=== PATIENT | male | born 1965 | race Hispanic/Latino ===

== ENCOUNTER 2025-03-28 13:38 | Emergency (ER) | payer BC ==
[~2025-03-28] VITALS: Ht 170.2 cm; Wt 77.1 kg
[2025-03-28 14:10] LABS: IMMATURE GRANULOCYTE ABSOLUTE 0.03 K/uL (0-1); NUCLEATED RED BLOOD CELLS 0.0 % (0.0-0.19); PLATELET COUNT (AUTO) 200 K/uL (130-400); RED BLOOD CELL COUNT(AUTO) 5.24 MIL/uL (4.50-6.20); RED CELL DISTRIBUTION WIDTH 13.0 % (11.0-15.5); WHITE BLOOD COUNT (AUTO) 8.1 K/uL (4.8-10.8)
[2025-03-28 14:22] LABS: CREATININE 0.7 mg/dL (0.5-1.3); GLOMERULAR FILTR. RATE CALC 106.0 mL/min (>90); GLUCOSE,RANDOM 309.0 mg/dL (70-105); SODIUM SERUM 132.0 mmol/L (136-145); UREA NITROGEN, BLOOD 10.0 mg/dL (7-18)
[2025-03-28 14:27] LABS: ABG BASE EXCESS -4.2 mmol/L (-2.0-3.0); ABG HCO3 18.0 mmol/L (21.0-28.0); ABG PCO2 26 mmHg (35-48); ABG PH 7.454 (7.350-7.450); DEVICE COMMENT LR JULIE; TEMPERATURE, CELSIUS BG 37.0 CELSIUS (35.5-37.0); VENT MODE, BG ROOM AIR (ROOM AIR)
--- NOTE | 2025-03-28 14:46 | ERN ---
ED Note History of Present Illness Stated Complaint: SENT BY CLINIC FOR HI BLOOD GLUCOSE. PT C/O FEVER Chief Complaint: Hyperglycemia Time Seen by MD: 13:54 Time Seen by Midlevel: 13:56 Dictation: 59-year-old male diabetes and CVA brought in via EMS from doctor's office for elevated blood sugar to rule out DKA. Patient states he went to PCP because he was having urinary frequency. Patient also states he has needs to be taking metformin but has not taking months due to its side effects. Allergies: Coded Allergies: No Known Drug Allergies (Unverified Allergy, Unknown, 03/28/25) Past Medical History Past Medical History: Diabetes-Type II, High Cholesterol, Hypertension, Stroke Additional Past Medical Hx: R SIDED WEAKNESS Surgical History: None Review of System Dictation Constitutional: Negative for fever,chills, and weight loss Eyes: Negative for injury, pain,redness, and discharge ENT: Negative for injury,pain or swelling Cardiovascular: Negative for chest pain, palpitations, and edema Respiratory: Negative for shortness of breath, cough, and wheezing, Abdomen/GI: Negative for abdominal pain, nausea, vomiting, diarrhea, and constipation Back: Negative for injury and pain : Cleaning of urinary frequency MS/Extremity: Negative for injury and deformity Skin: Negative for rash, and discoloration Neuro: Negative for headache, weakness, numbness, tingling, and seizure Psych: Negative for suicide ideation, homicidal ideation, and hallucinations Review of Systems: was completed Initial Vital Sign VS Vital Signs Date Time Temp Pulse Resp B/P (MAP) Pulse Ox O2 Delivery O2 Flow Rate FiO2 03/28/25 13:47 98.1 92 17 134/87 98 Room Air 0 03/28/25 14:18 21 Physical Exam Dictation General: awake, alert, NAD Head/Face: Normocephalic, atraumatic Eyes: PERRL, EOMI, vision at baseline ENT: oral cavity clear, TMs clear, no signs of infection Neck: Trachea midline, supple, no nuchal rigidity Cardiovascular: RRR, normal S1/S2, No MRGs, no JVD Respiratory: CTAB, no respiratory distress, No rales or wheezes Abdomen: Soft, non-tender, non-distended, normal bowel sounds, no guarding or rebound. Skin: Warm, dry, normal turgor, no rash MS/Extremity: Pulses equal, no cyanosis, neurovascular intact, FROM Neuro: COAx4, GCS 15, strength 5/5, CN 2-12 intact, normal cerebellar exam, normal gait, Psych: Normal behavior, mood, and affect normal Results (Laboratory/Radiology) Laboratory/Radiology Laboratory Tests Test 03/28/25 14:06 03/28/25 14:25 03/28/25 15:03 03/28/25 17:02 White Blood Count 8.1 K/uL (4.8-10.8) Red Blood Count 5.24 MIL/uL (4.50-6.20) Hemoglobin 16.2 g/dL (14.0-18.0) Hematocrit 45.6 % (42-54) Mean Corpuscular Volume 87.0 fL (79-99) Mean Corpuscular Hemoglobin 30.9 pg (27.0-33.0) Mean Corpuscular Hemoglobin Concent 35.5 g/dL (32.0-36.0) Red Cell Distribution Width 13.0 % (11.0-15.5) Platelet Count 200 K/uL (130-400) Mean Platelet Volume 9.8 fL (7.5-10.5) Immature Granulocyte % (Auto) 0.4 % (0-1) Neutrophils (%) (Auto) 73.4 % (40.0-77.0) Lymphocytes (%) (Auto) 13.0 % (21.0-51.0) L Monocytes (%) (Auto) 10.9 % (3.0-13.0) Eosinophils (%) (Auto) 1.7 % (0.0-8.0) Basophils (%) (Auto) 0.6 % (0.0-5.0) Neutrophils # (Auto) 6.0 K/uL (1.8-7.7) Lymphocytes # (Auto) 1.1 K/uL (1.0-4.8) Monocytes # (Auto) 0.9 K/uL (0.1-1.0) Eosinophils # (Auto) 0.14 K/uL (0.00-0.70) Basophils # (Auto) 0.05 K/uL (0.00-0.20) Absolute Immature Granulocyte (auto 0.03 K/uL (0-1) Nucleated Red Blood Cells 0.0 % (0.0-0.19) Sodium Level 132 mmol/L (136-145) L Potassium Level 3.7 mmol/L (3.5-5.1) Chloride Level 99 mmol/L (101-111) L Carbon Dioxide Level 22 mmol/L (21-32) Blood Urea Nitrogen 10 mg/dL (7-18) Creatinine 0.7 mg/dL (0.5-1.3) Glomerular Filtration Rate Calc 106 mL/min (>90) Random Glucose 309 mg/dL (70-105) H Whole Blood Ketones Quantitative 0.6 mmol/L (0.0-0.6) Total Calcium 8.7 mg/dL (8.5-10.1) Blood Gas Specimen Type Arterial Arterial Blood pH 7.454 (7.350-7.450) Arterial Blood Partial Pressure CO2 26 mmHg (35-48) L Arterial Blood HCO3 18.0 mmol/L (21.0-28.0) L Arterial Blood Base Excess -4.2 mmol/L (-2.0-3.0) L Sodium (Blood Gas) 130 MMOL/L (136-145) L Bedside Potassium (Blood Gas) 3.8 MMOL/L (3.4-4.5) Bedside Chloride (Blood Gas) 100 MMOL/L (98-107) Bedside Glucose (Blood Gas) 292 MG/DL (65-95) H Bedside Ionized Calcium (Blood Gas) 1.16 MMOL/L (1.15-1.33) Bedside Lactic Acid (Blood Gas) 1.15 MMOL/L (0.36-0.75) H Blood Gas Temperature 37.0 CELSIUS (35.5-37.0) Blood Gas Vent Mode ROOM AIR (ROOM AIR) FiO2 21.0 % Blood Gas Specimen Comment LR TREE Urine Color LIGHT-YELLOW (YELLOW) Urine Appearance CLEAR (CLEAR) Urine pH 5.5 (5.0-8.0) Urine Specific [place] 1.029 (1.001-1.031) Urine Protein NEGATIVE mg/dL (NEGATIVE) Urine Glucose (UA) >=1000 mg/dL (NEGATIVE) H Urine Ketones 20 mg/dL (NEGATIVE) H Urine Occult Blood NEGATIVE (NEGATIVE) Urine Nitrate NEGATIVE (NEGATIVE) Urine Bilirubin NEGATIVE mg/dL (NEGATIVE) Urine Urobilinogen 0.2 mg/dL (0.2-1.0) Urine Leukocyte Esterase NEGATIVE [place]/uL Urine RBC None /HPF (0-1) Urine WBC 0-1 /HPF (0-1) Urine Bacteria None /HPF (None Seen) Whole Blood Glucose 239 MG/DL (70-110) H Labs Reviewed?: Yes ED Course ED Course Orders Procedure Category Date Status Time Cbc With Differential LAB 03/28/25 Complete 13:55 Basic Metabolic Panel LAB 03/28/25 Complete 13:55 Urinalysis Profile LAB 03/28/25 Complete 13:55 Arterial Blood Gas + RT 03/28/25 Transmitted 13:55 Ketone Blood LAB 03/28/25 Complete Quantitative 13:55 Arterial Blood Gas LAB 03/28/25 In Process Arterial + 14:25 0.9%Nacl 1000ml (Ns PHA 03/28/25 Complete 1000ml) 14:45 Insulin Regular, PHA 03/28/25 Complete Human 3ml (Humulin R 15:00 Bedside Glucose CPOE 03/28/25 Transmitted Fingerstick 15:48 Current Medications Medications (Trade) Dose Ordered Sig/Good Route PRN Reason Start Time Stop Time Status Last Admin Dose Admin Insulin Human Regular (humuLIN R 100 UNIT/ML 3ML) 7 unit ONCE ONCE IV 03/28/25 15:00 03/28/25 15:01 DC 03/28/25 16:05 Sodium Chloride 1,000 ml @ 1,000 mls/hr Q1H STAT IV 03/28/25 14:45 03/28/25 15:44 DC 03/28/25 16:03 Vital Signs Date Time Temp Pulse Resp B/P (MAP) Pulse Ox O2 Delivery O2 Flow Rate FiO2 03/28/25 14:18 99.1 90 16 140/84 97 Room Air* 0 21 03/28/25 13:47 98.1 92 17 134/87 98 Room Air 0 Medical Decision Making MDM MDM: 59-year-old male diabetes and CVA brought in via EMS from doctor's office for elevated blood sugar to rule out DKA. Patient states he went to PCP because he was having urinary frequency. Patient also states he has needs to be taking metformin but has not taking months due to its side effects.CBC unremarkable. Chemistry shows sodium of 135. Blood glucose of 309. Arterial blood gases show a pH of 7.4, not consistent with a DKA. L of fluids and insulin given IV. Blood sugar now is 239. Discussed with the patient the importance that he needs to continue taking his metformin and follow up with the his PCP for further evaluation. Urine shows no evidence of urinary tract infection. Educated patient that his urinary frequency more likely is related to his hyperglycemia. Differential diagnosis: DKA, HHS, hyperglycemia Rationale: Tests considered and ordered secondary to shared decision making include: Previous outside records reviewed: Old ER visits. Risk of complication and/or morbidity or mortality of patient management: None Medications-Per medication reconciliation Need for hospitalization: Patient does not meet criteria for hospitalization. Need for emergency major/minor surgery: No There are no social concerns with this patient. Prescription drug management Prescriptions will include symptomatic care Patient's prior external medical records from other ER visits were reviewed by me as indicated. Prior testing and results from previous visits were reviewed. Prior tests were taken into account with medical decision making and resource utilization, independent historian/historians were used to obtain complete medical history. I independently interpreted the test that were performed, results were reviewed by me and considered findings on radiology if ordered. Medical management and examination interpretation discussions were had by me with other qualified healthcare professionals as indicated for the patient's care. DX & DISP Disposition: Discharge Departure Impression: Primary Impression: Uncontrolled blood glucose Condition: Stable Additional Instructions: Please start taking your metformin again. Follow up with your primary care provider. Return to the hospital for worsening symptoms. Referrals: JUAN MUSE MD (PCP) Time of Disposition: 17:14 I have reviewed the case, and I agree with, Diagnosis and Plan AVINASH [facility] Mar 28, 2025 14:46
[2025-03-28 15:21] LABS: APPEARANCE,URINE CLEAR (CLEAR); GLUCOSE, URINE (UA) >=1000 mg/dL (NEGATIVE); LEUKOCYTE ESTERASE ,URINE NEGATIVE Leu/uL (NEGATIVE); NITRATE,URINE NEGATIVE (NEGATIVE); OCCULT BLOOD,URINE NEGATIVE (NEGATIVE)
[2025-03-28 15:28] LABS: ADD UA MICROSCOPIC YES
[2025-03-28] MEDS: 0.9%NACL 1000ML 1,000 ML IV STA (16:03)
[2025-03-28 17:22] VITALS: BP 130/80; PULSE 78; RESP 18; TEMP 98.9; O2SAT 98
== END 2025-03-28 17:53 | disposition home or self-care (01) ==
LOC: EDH 13:38
DX: E11.65 Type 2 diabetes mellitus with hyperglycemia (principal); E78.00 Pure hypercholesterolemia, unspecified; I10 Essential (primary) hypertension; Z86.73 Personal history of transient ischemic attack (TIA), and cerebral infarction without residual deficits
CPT/HCPCS: 99284; 96374; 96361; 82947; 80048; 82803; 85025; 83605; 82010; 81001; 36415; 36600; 82948; 82435; 84132; 84295; 85018; J1815; J7030